=== PATIENT | female | born 1935 ===

== ENCOUNTER → 2022-04-29 10:44 | Outpatient (BNVA) | payer MEDICARE, OTHER, SELFPAY | PROVIDERS: PCP Physical Medicine & Rehabilitation; Visit Provider Internal Medicine | DX: S32.030A Wedge compression fracture of third lumbar vertebra, initial encounter for closed fracture (principal); M47.816 Spondylosis without myelopathy or radiculopathy, lumbar region; M25.511 Pain in right shoulder; M25.512 Pain in left shoulder | CPT/HCPCS: 99202 ==

== ENCOUNTER 2022-06-05 06:17 | Outpatient (REF) | payer MEDICARE, OTHER, SELFPAY ==
--- NOTE | ~2022-06-05 | FL_ITS ---
EXAMINATION: XR FLUOROSCOPY WITH IMAGES CLINICAL INFORMATION: Spondylosis without myelopathy or radiculopathy, lumbar region COMPARISON: None available. TECHNIQUE: Fluoroscopy Supervised By: Dr. Alfredo Vincent. Fluoroscopy Time: 0.3 minutes. Cumulative Dose: 2.91 mGy. DAP: 0.393 Gycm2. Images: 2. FINDINGS: Imaging demonstrates needles and contrast about the L3-L5 facet joints bilaterally. There is a compression fracture of L4. FL/FL guidance in treatment room IMPRESSION: Intraoperative fluoroscopy for pain management procedure.
== END 2022-06-05 06:18 | disposition home or self-care (01) ==
LOC: CF 06:17
PROVIDERS: Visit Provider Internal Medicine
DX: M47.816 Spondylosis without myelopathy or radiculopathy, lumbar region (principal)
CPT/HCPCS: 64493; 64494

== ENCOUNTER → 2022-06-24 11:28 | Outpatient (BNVA) | payer MEDICARE, OTHER, SELFPAY | PROVIDERS: PCP Physical Medicine & Rehabilitation; Visit Provider Internal Medicine | DX: M47.816 Spondylosis without myelopathy or radiculopathy, lumbar region (principal); M79.18 Myalgia, other site; M54.50 Low back pain, unspecified; S32.030D Wedge compression fracture of third lumbar vertebra, subsequent encounter for fracture with routine healing | CPT/HCPCS: 20552; 99212 ==

== ENCOUNTER → 2022-07-19 08:41 | Outpatient (BNVA) | payer MEDICARE, OTHER, SELFPAY | PROVIDERS: PCP Internal Medicine; Visit Provider Internal Medicine | DX: M79.18 Myalgia, other site (principal); M47.816 Spondylosis without myelopathy or radiculopathy, lumbar region; M54.50 Low back pain, unspecified | CPT/HCPCS: 20553; 99212; J2795 ==